=== PATIENT | male | born 1970 | race Caucasian/White ===

== ENCOUNTER 2017-11-02 16:19 | Emergency (ER) | payer OTHER ==
[2017-11-02 16:31] VITALS: BP 152/96
--- NOTE | 2017-11-02 16:41 | UC ---
Respiratory Complaint HPI - HPI Summary HPI Summary: 47 y/o male presents to the urgent care c/o productive cough, chills, wheezing, B/L ear pain and pressure since 10/30/2017. He also has nasal congestion w/ yellowish discharge, mild ROMAN. Pt is concerned w/ cough since last years he end up w/ pneumonia. Pt has been using his albuterol inhaler more often for the past 2 days since he has mild wheezing. Pain is 4/10. Pt denies, SOB, chest pain , abdominal pain,N/V/D. Pt has taking Sudafed PO to alleviate symptoms. - History of Current Complaint Chief Complaint: UCGeneralIllness Stated Complaint: CHEST CONGESTION, AND EAR ACHE Time Seen by Provider: 11/02/17 16:38 Hx Obtained From: Patient Onset/Duration: Gradual Onset, Lasting Days - 4 days, Still Present, Worse Since - 2 days Timing: Constant Severity Initially: Mild Severity Currently: Moderate Pain Intensity: 4 Pain Scale Used: 0-10 Numeric Character: Cough: Productive, Sputum Description: - yellowish Alleviating Factors: Bronchodilator Associated Signs And Symptoms: Positive: Chills, Wheezing, URI, Nasal Congestion - Risk Factors Pulmonary Embolism Risk Factors: Negative Cardiac Risk Factors: Negative Pseudomonas Risk Factors: Negative Tuberculosis Risk Factors: Negative - Allergies/Home Medications Allergies/Adverse Reactions: Allergies Allergy/AdvReac Type Severity Reaction Status Date / Time dog and cats dander Allergy Mild Wheezing Uncoded 11/02/17 16:31 Home Medications: Home Medications Albuterol HFA INHALER* [Ventolin HFA Inhaler*] 1 puff PO Q4H PRN 11/02/17 [ History Confirmed 11/02/17] Fluticasone-Salmeterol 100-50* [Advair Diskus 100-50*] 1 puff PO DAILY 11/02/17 [History Confirmed 11/02/17] PMH/Surg Hx/FS Hx/Imm Hx Previously Healthy: Yes Respiratory History: Asthma - Surgical History Surgical History: Yes Surgery Procedure, Year, and Place: linh - Family History Known Family History: Positive: Cardiac Disease, Hypertension - Social History Occupation: Employed Full-time Lives: With Family Alcohol Use: Occasionally Substance Use Type: None Smoking Status (MU): Never Smoked Tobacco Review of Systems Constitutional: Negative Skin: Negative Eyes: Negative ENT: Sore Throat, Ear Ache - B/L ear pressure and pain, Nasal Discharge - yellowish discharge, Sinus Congestion Respiratory: Cough - productive w/ yellowish phlegm, Other - wheezing Cardiovascular: Negative Gastrointestinal: Negative Genitourinary: Negative Motor: Negative Neurovascular: Negative Musculoskeletal: Negative Neurological: Negative Psychological: Negative Is Patient Immunocompromised?: No All Other Systems Reviewed And Are Negative: Yes Physical Exam - Summary Physical Exam Summary: Vital Signs Reviewed: Yes General: well developed, well nourished male sitting in the examining table w/o any apparent distress Eyes: Positive: Conjunctiva Clear - PERRLA, EOMI, fundi grossly normal ENT: Positive: Normal ENT inspection, Hearing grossly normal, Pharynx w/ mild erythema no exudate, Nasal congestion - edematous and erythematous nasal mucosa , Nasal drainage - yellowish drainage, TMs normal. Negative: Tonsillar swelling , Tonsillar exudate. RT exteranl ear canl clear, LF TM WNL, RT exteranl ear canl clear, Rt TM injected w/ erythema, no discharge. Neck: Positive: Supple, Nontender, B/L anterior cervical lymphadenopathy, Respiratory: no orthopnea or dyspnea. Able to speak in full sentences, no retractions or accessory muscle use, no tripod position, stridor, or head bobbing. Positive breath sounds bilaterally.B/l lungs w/ scattered wheezing and rhonchi, no crackles, no rales. Cardiovascular: Positive: RRR, No Murmur, Pulses Normal, Brisk Capillary Refill Abdomen Description: Positive: Nontender, No Organomegaly, Soft. Negative: CVA Tenderness (R), CVA Tenderness (L) Bowel Sounds: Positive: Present Musculoskeletal Exam: Normal Musculoskeletal: Positive: Strength Intact, ROM Intact, No Edema Neurological Exam: Normal Psychological Exam: Normal Skin Exam: Normal Triage Information Reviewed: Yes Vital Signs: Initial Vital Signs Temp 98.0 F 11/02/17 16:25 Pulse 58 11/02/17 16:25 Resp 17 11/02/17 16:25 BP 152/96 11/02/17 16:25 Pulse Ox 99 11/02/17 16:25 Diagnostic Evaluation - Laboratory O2 Sat by Pulse Oximetry: 99 Respiratory Course/Dx - Course Course Of Treatment: 47 y/o male presents to the urgent care c/o productive cough, chills, wheezing, B/L ear pain and pressure since 10/30/2017. He also has nasal congestion w/ yellowish discharge, mild ROMAN. Pt is concerned w/ cough since last years he end up w/ pneumonia. Pt has been using his albuterol inhaler more often for the past 2 days since he has mild wheezing. Pain is 4/ 10. Pt denies, SOB, chest pain, abdominal pain,N/V/D. Pt has taking Sudafed PO to alleviate symptoms.Hx obtained. Pt w/ an asthma exacerbation due to bronchitis and left otitis media on examination, O2SAt:98%. Chest X-ray ordered to r/o pneumonia. Impression: No active cardiolpulmonary disease. DuoNeb Treatment given to patient w/ Prednisone PO. Patient tolerated well treatment and lungs improved, mild wheezing only in posterior lungs, O2 sat 100%. Patient prescribed Azitromycin PO, Duoneb. Tx. First dose given at the clinic tonight , as directed below. The patient was recommended to increase fluid intake. Take medications as recommended and patient advised to continue w/ Duoneb treatments . Pt's BP is elevated today advised to decrease salt in diet , monitor BP and f/u with PCP for further management. Patient recommended to return to the clinic or go to the nearest ER if symptoms do not improve or worsen. Patient understood and agreed. - Differential Dx/Diagnosis Differential Diagnosis/HQI/PQRI: Asthma, Bronchitis, Influenza, Lower Resp Infection, Sinusitis, Other - otitis media Provider Diagnoses: 1- Asthma exacerbation due to bronchitis. 2- Left Otitis Media. 3-Elevated BP w/o Hx of HTN Discharge - Sign-Out/Discharge Documenting (check all that apply): Discharge - Discharge Plan Condition: Stable Disposition: HOME Prescriptions: Albuterol/Ipratropium NEB.[place]* [Duoneb (Albuterol 2.5 MG/Ipratropium 0.5 MG)] 1 neb INH Q6H PRN #1 lin PRN Reason: Wheezing Azithromycin TAB* [Zithromax TAB (Z-LIN) 250 mg #6 tabs] 250 mg PO DAILY #4 tab predniSONE TAB* [Deltasone TAB*] 20 mg PO DAILY #8 tab Patient Education Materials: Asthma (ED), Low-Sodium Diet (ED), Ear Infection ( ED) Referrals: Jack Alvarado MD [Primary Care Provider] - 2 Days Additional Instructions: 1-Please take full course of antibiotic to avoid resistance. 2-Take Prednisone PO as directed and due the Duoneb treatments as directed 3- If symptoms do not improve or worsen or your develop SOB with fever and severe wheezing please go immediately to the ER further evaluation and treatment. 4- F/u with your PCP in 3 days for further management on your Asthma 5-Your BP is elevated today. please decrease salt in your diet, monitor BP and if it continues to be elevated please f/u with your PCP for further management - Billing Disposition and Condition Condition: STABLE Disposition: HOME
[2017-11-02] MEDS ORDERED: predniSONE TAB* 20 MG PO ONE (16:50)
[2017-11-02] MEDS ORDERED: Albuterol/Ipratropium NEB.SOL* Albuterol 2.5 MG/Ipratropium 0.5 MG 3 ML INH ONE (16:50)
--- NOTE | 2017-11-02 17:39 | RAD ---
HISTORY: Cough, wheezing COMPARISONS: September 22, 2009 VIEWS: 4: Frontal dual-energy and lateral views of the chest. FINDINGS: CARDIOMEDIASTINAL SILHOUETTE: The cardiomediastinal silhouette is normal. ANT: The ant are normal. PLEURA: The costophrenic angles are sharp. No pleural abnormalities are noted. LUNG PARENCHYMA: The lungs are clear. ABDOMEN: The upper abdomen is clear. There is no subphrenic gas. BONES AND SOFT TISSUES: Degenerative changes are noted of the spine OTHER: None. IMPRESSION: NO ACTIVE CARDIOPULMONARY DISEASE.
[2017-11-02] MEDS ORDERED: Azithromycin TAB* 250 MG PO ONE (17:41)
== END 2017-11-02 17:52 | disposition home or self-care (01) ==
LOC: UCEAST 16:19
DX: J45.901 Unspecified asthma with (acute) exacerbation (principal); H66.92 Otitis media, unspecified, left ear; R03.0 Elevated blood-pressure reading, without diagnosis of hypertension
CPT/HCPCS: 71046; 99213; A9270-GY; G0463; J7512